=== PATIENT | male | born 1990 | race Caucasian/White ===

== ENCOUNTER 2017-06-16 18:46 | Inpatient (IN) | payer OTHER ==
[~2017-06-16] VITALS: Ht 172.7 cm; Wt 81.6 kg
[2017-06-16 18:57] VITALS: BP 124/88
[2017-06-16 19:10] LABS: ABSOLUTE BASOPHILS 0.1 thou/uL (0.0-0.2); ABSOLUTE EOSINOPHILS 0.1 thou/uL (0.0-0.7); ABSOLUTE LYMPHOCYTES 5.3 thou/uL (0.8-5.3); ABSOLUTE MONOCYTES 1.1 thou/uL (0.0-1.2); ABSOLUTE NEUTROPHILS 5.5 thou/uL (1.6-8.1); BASOPHILS 0.5 %; EOSINOPHILS 1.1 %; HEMATOCRIT 44.3 % (42.0-52.0); HEMOGLOBIN 15.3 gm/dL (14.0-18.0); LYMPHOCYTES 43.9 %; MCH 29.4 pg (26.0-34.0); MCHC 34.6 g/dL (28.0-37.0); MONOCYTES 8.9 %; MPV 7.1 fl. (7.2-11.1); NUCLEATED RBCS 0 /100WBC; PLATELET COUNT* 342 thou/uL (150-400); POLYS 45.6 %; RBC 5.21 mil/uL (4.50-6.00); RDW-CV 12.9 % (10.5-14.5)
[2017-06-16 19:15] LABS: ANION GAP 12 mmol/L (7-16); BUN 11 mg/dL (7-18); CALCIUM 8.8 mg/dL (8.5-10.1); CHLORIDE 103 mmol/L (98-107); CO2 25 mmol/L (21-32); CREATININE 1.3 mg/dL (0.6-1.3); GLUCOSE 79 mg/dL (70-99); SODIUM 140 mmol/L (136-145)
[2017-06-16] MEDS ORDERED: HYDROCODONE-AP1 EAC6 PO (19:15)
[2017-06-16 19:20] LABS: APTT 28.2 Seconds (25.0-31.3); INR 1.1; PROTIME 10.7 Seconds (9.20-11.50)
[2017-06-16 19:26] LABS: ALBUMIN 4.2 g/dL (3.4-5.0); ALKALINE PHOSPHATASE 69 U/L (46-116); NT-PRO BRAIN NAT PEPTIDE 50 pg/mL (<300); SGOT 25 U/L (15-37); SGPT 26 U/L (30-65); TOTAL BILIRUBIN 0.2 mg/dL (<0.1-1.0); TOTAL PROTEIN 7.3 g/dL (6.4-8.2); TROPONIN-I LEVEL <0.06 ng/mL (<0.06)
[2017-06-16 19:53] LABS: INFLUENZA A ANTIGEN None Detected (None Detect); INFLUENZA B ANTIGEN None Detected (None Detect)
[2017-06-16 20:01] LABS: URINE BILIRUBIN NEGATIVE (Negative); URINE BLOOD NEGATIVE (Negative); URINE CLARITY CLEAR; URINE COLOR YELLOW; URINE GLUCOSE-RANDOM NEGATIVE (Negative); URINE KETONES NEGATIVE (Negative); URINE LEUKOCYTES-REFLEX NEGATIVE (Negative); URINE NITRITE-REFLEX NEGATIVE (Negative); URINE PROTEIN NEGATIVE (Negative); URINE UROBILINOGEN 0.2 E.U./dl (0.2-1.0)
[2017-06-16 20:10] LABS: AMP/METHAMP Negative (Negative); BARBITURATES Negative (Negative); BENZODIAZEPINES Negative (Negative); COCAINE Negative (Negative); METHADONE Negative (Negative); OPIATES POSITIVE (Negative); PCP Negative (Negative); THC Negative (Negative)
--- NOTE | 2017-06-16 20:38 | NUR ---
DR. GONSALES ATTEMPTED LUMBAR PUNCTURE. PT REQUESTED THE PROCEDURE BE STOPPED. DR. GONSALES STOPPED PROCEDURE WITHOUT GETTING SPECIMEN.
[2017-06-16 22:31] VITALS: BP 123/74
[2017-06-16 23:39] VITALS: BP 119/64
--- NOTE | 2017-06-17 01:06 | NUR ---
PATIENT ARRIVED BY CART FROM ER TO ROOM 102 IN STABLE CONDITION AT 2220. ALERT AND ORIENTED X4. FENTANYL GIVEN FOR LEFT LEG PAIN, C/O LLE NUMBNESS AND PAIN AND LUE TINGLING SINCE LP ATTEMPT IN ER. IVF INFUSING ORDERED. DENIES NAUSEA. VOIDING ADEQUATELY PER URINAL. VITALS STABLE. CONTINUE TO MONITOR.
[2017-06-17 08:00] VITALS: BP 138/67
[2017-06-17 08:05] VITALS: BP 138/67
[2017-06-17 11:20] LABS: HEMATOCRIT 43.4 % (42.0-52.0); HEMOGLOBIN 14.9 gm/dL (14.0-18.0); MCH 29.2 pg (26.0-34.0); MCHC 34.3 g/dL (28.0-37.0); MPV 7.4 fl. (7.2-11.1); RBC 5.1 mil/uL (4.50-6.00); RDW-CV 13.2 % (10.5-14.5); WBC 13.6 thou/uL (4.0-11.0)
[2017-06-17 11:45] LABS: ALBUMIN 3.8 g/dL (3.4-5.0); CALCIUM 8.8 mg/dL (8.5-10.1); MAGNESIUM 1.9 mg/dL (1.8-2.4); POTASSIUM 3.9 mmol/L (3.5-5.1); TOTAL BILIRUBIN 0.3 mg/dL (<0.1-1.0); TOTAL PROTEIN 6.9 g/dL (6.4-8.2)
--- NOTE | 2017-06-17 12:28 | EKG ---
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
[2017-06-17 15:24] LABS: AMP/METHAMP Negative (Negative); BARBITURATES Negative (Negative); BENZODIAZEPINES Negative (Negative); COCAINE Negative (Negative); METHADONE Negative (Negative); OPIATES Negative (Negative); PCP Negative (Negative); THC Negative (Negative)
--- NOTE | 2017-06-17 15:46 | NUR ---
PT.OFF UNIT FOR LUMBAR PUNCTURE. WILL SEE AT A LATER DATE.
[2017-06-17 16:24] LABS: CSF GLUCOSE 71 mg/dl (40-70); CSF PROTEIN 34.1 mg/dl (15-45)
[2017-06-17 16:54] LABS: CSF CLARITY TURBID; CSF COLOR PINK; CSF WBC 6 /mm3 (0-10); VOLUME 11 ml
[2017-06-17 16:55] LABS: CSF RBC 2675 /mm3
--- NOTE | 2017-06-17 17:08 | NUR ---
PATIENT REMAINED ALERT AND ORIENTED X'S 4. VITAL SIGNS AND SPO2 STABLE. IV CLEAN, FLUIDS INFUSING. PATIENT RECIEVED SPINAL TAP AND GOT BACK TO UNIT AROUND 1615. PATIENT HAVING HORRIBLE HEADACHE AND SENSITIVITY TO LIGHT. GAVE DILUDID, PATIENT FELL ASLEEP. TOLERATED DIET, NO NAUSEA AND VOMITING. VOIDED WITHOUT ISSUE. COMPLETED HOURLY ROUNDING. CALL LIGHT WITHIN REACH. WILL CONTINUE TO MONITOR.
[2017-06-17 21:00] VITALS: BP 121/68
[2017-06-18 00:21] VITALS: BP 126/59
--- NOTE | 2017-06-18 05:34 | NUR ---
PATIENT ALERT AND ORIENTED. VITALS STABLE. AFEBRILE. RA. LUMBAR PUNCTURE SITE C/D/I. COMPLAINTS OF HEADACHE AND BACK PAIN. PATIENT IN TEARS DUE TO HEADACHE DURING THE NIGHT. PHYSICIAN NOTIFIED ORDERS RECEIVED. TAKING DILAUDID APPROXIMATELY EVERY THREE HOURS. DID NOT SLEEP MUCH. VOIDING PER URINAL, ADEQUATELY. FLUIDS INFUSING PER ORDER. STATES THAT LEFT LEG NUMBNESS IS IMPROVING. HOURLY ROUNDS. INSTRUCTED TO CALL FOR ASSISTANCE. NURSING WILL CONTINUE TO MONITOR.
[2017-06-18 08:11] VITALS: BP 135/79
--- NOTE | 2017-06-18 14:47 | NUR ---
RE: PHARMACY VANCOMYCIN DOSING. SCR = 1.0, CRCL = 109.3, TMAX = 36.4, WBC = 13.6. PT RECEIVING VANCOMYCIN 1.25 GM IV Q12H. PT HAD VANCOMYCIN TROUGH OF 6 WHICH WAS DRAWN APPROPRIATELY. WILL INCREASE DOSE TO 1 GM IV Q8H. REPEAT VANCOMYCIN TROUGH TO BE DRAWN PRIOR TO 06/20/17 10:00 DOSE. WILL FOLLOW. THANK YOU.
[2017-06-18 16:18] VITALS: BP 121/59
[2017-06-18 17:24] VITALS: BP 121/59
--- NOTE | 2017-06-18 18:28 | NUR ---
ASSUMED CARE OF PATIENT AFTER MORNING REPORT. ALERT AND ORIENTED X4. ASSESSMENT COMPLETED AND CHARTED. VSS ON ROOM AIR. PATIENT HAS HAD NO COMPLAINTS OF NAUSEA THIS SHIFT. PAIN HAS BEENMANAGED WITH PAIN MEDICATION. PATIENT RESTED COMFORTABLY IN BED THROUGHOUT THE SHIFT. PATIENT DISCHARGE HAS BEEN PROCESSED AND SIGNED. PATIENT IN ROOM CURRENTLY WAITING ON HIS RIDE HOME.
--- NOTE | 2017-06-20 07:39 | CON ---
[address] [address] CONSULTATION Name: VILMA OBANDO Room: [address] IN .R.#: [id number] Admission: 06/16/17 Attend Phys: Kylah Mercado Discharge: 06/18/17 Date of : 89 Report #: [id number] THIS REPORT FOR: //name// CC: QUINN physician/PCP Vish Gutierrez DATE OF SERVICE: 06/17/2017 ATTENDING PHYSICIAN: Vish Gutierrez DO. REASON FOR EVALUATION: Encephalopathy, headache, possible meningitis. HISTORY OF PRESENT ILLNESS: Chart reviewed, patient examined. This is a 26-year-old whose recent medical history includes hemorrhoid surgery on 06/15/2017. He had a significant amount of postoperative pain he states over the course of the next 24-36 hours and developed fevers, associated headache and some near syncope with altered mental status. He was evaluated in the Emergency Room. Four attempts at lumbar puncture were unsuccessful. He was empirically started on vancomycin as well as ceftriaxone. Overall, he is better today. Still having some mild headaches, photophobia, the meningismus or neck stiffness seemed to have improved. He is afebrile. On questioning, he denies any particular exposure history. 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 ALLERGIES: IODINE AND ASPIRIN. CURRENT MEDICATIONS: Include ceftriaxone, vancomycin, analgesics. PAST MEDICAL HISTORY: Noted for the hemorrhoids. SOCIAL HISTORY: Nonsmoker, no ethanol. FAMILY HISTORY: Noncontributory. REVIEW OF SYSTEMS: As above. Denies any pulmonary or gastrointestinal related complaints. PHYSICAL EXAMINATION: GENERAL: He is alert, cooperative, mild to moderate distress. VITAL SIGNS: Temperature 97.6, pulse 84, respirations 18, blood pressure 130/67. SKIN: Warm, dry, no rashes. HEENT: Otherwise, unremarkable. NECK: Supple. LUNGS: Clear to auscultation. HEART: Regular. [place] [address] CONSULTATION Name: VILMA OBANDO Room: [address]#: [id number] Admission: 06/16/17 Attend Phys: Kylah Mercado Discharge: 06/18/17 Date of : 89 Report #: [id number] ABDOMEN: Soft. EXTREMITIES: No cyanosis. GENITOURINARY AND RECTAL: Deferred. LABORATORY DATA: CBC: White count of 13.6, H and H of 14.9 and 43.4, platelets of 362. Blood cultures sterile thus far. Monospot is negative. Lactic acid 0.9. Urinalysis unremarkable. Influenza negative. CT of the head showed no acute abnormalities and rapid strep was negative. Lactic acid 2.2. Liver functions unremarkable. Albumin 4.2, total protein 7.3, estimated GFR of 67. ASSESSMENT AND PLAN: Encephalopathy with associated fever, recent hemorrhoid surgery certainly raises question of possible transient bacteremia with seeding. I am not inclined to believe he has got bacterial meningitis. I do not think there is any where he will agree to any additional efforts at lumbar puncture. We will continue empiric therapy over the course of next 24-48 hours and see how he does clinically and evaluate for possible other focus of infection. Thank you. We will follow. <ELECTRONICALLY SIGNED> By: Chauncey Greene MD 06/20/17 0739 1135 [id number] Greene MD /nt
--- NOTE | 2017-07-08 09:25 | D ---
[address] [address] DISCHARGE SUMMARY Name: GISELLA,VILMA LERNER Room: [address] IN .#: [id number] Admission: 06/16/17 Attend Phys: Kylah Mercado Discharge: 06/18/17 Date of : 89 Report #: [id number] THIS REPORT FOR: //name// CC: [facility]N physician/PCP Vish Gutierrez DATE OF SERVICE: 06/18/2017 DATE OF DISCHARGE: 06/18/2017 AMA REASON FOR HOSPITAL STAY: This 26-year-old male was admitted with symptoms of acute encephalopathy with lethargy, sore throat and fever as well as headache. He was seen in the Emergency Room and thought to have evidence of encephalitis. He had been taking narcotics after he had hemorrhoidal surgery in [place], [place]. A few days earlier, he presented with headache and LP was attempted in the ER without success. He was admitted to the floor and IR was consulted for lumbar puncture. The lumbar puncture revealed no evidence of significant meningitis. His headache improved and he did experience radicular symptoms after the lumbar puncture, which resolved on the day of discharge. He was seen in consultation by Surgery and felt to have no significant postop rectal bleeding although reported significant bleeding on the day of admission. His vital signs remained stable. Hemoglobin was stable as well. LABORATORY DATA: His potassium was 3.9. INR 1.1. White count 13.6 and hemoglobin 14.9. Kerr screen was negative. Influenza screen was negative. Urine opiate drug screen was positive. PHYSICAL EXAMINATION: GENERAL: On exam, he is alert, oriented and appropriate affect. LUNGS: Clear. ABDOMEN: Soft. SKIN: Warm and dry, good capillary refill NEUROLOGIC: Speech was normal. Neurologically, cranial nerves 2-12 were grossly intact. He was ambulatory without gait disturbance. VITAL SIGNS: Afebrile and pulse ox showed an O2 sat of 98%, respiratory rate was 16 and unlabored and weight 180 pounds. HOSPITAL COURSE: The patient was ordered to have consultation with Infectious Disease. The patient unfortunately left against medical advice prior to this consultation. No further instructions were given as the patient did leave [place]. He is to follow up with his surgeon in [place] next week and with his primary care doctor in 2-3 days. CSF cultures as far [place] I [place] [address] DISCHARGE SUMMARY Name: VILMA OBANDO Room: [address] IN [facility]#: [id number] Admission: 06/16/17 Attend Phys: Kylah Mercado Discharge: 06/18/17 Date of : 89 Report #: [id number] at the time of his dismissal; however, he did leave [place]. Rapid strep was negative. Lactic acid was elevated on the day of admission at 2.2. <ELECTRONICALLY SIGNED> By: Tavo Sullivan MD 07/08/17 0925 [id number] Celestino Sullivan MD /nt
== END 2017-06-18 20:00 | disposition left against medical advice (07) | DRG 71 ==
LOC: M.ERS 18:46 → M.TBA-ER 21:00 → M.ORTHSURG 21:00
PROVIDERS: Family Medicine; Physician Assistant; ADMIT Internal Medicine
PROC: 009U3ZX Drainage of Spinal Canal, Percutaneous Approach, Diagnostic (ICD-10-PCS; principal; 2017-06-16)
PROC: B01B1ZZ Fluoroscopy of Spinal Cord using Low Osmolar Contrast (ICD-10-PCS; principal; 2017-06-16)
DX: G93.40 Encephalopathy, unspecified (principal); E87.2 Acidosis; K62.5 Hemorrhage of anus and rectum; R65.10 Systemic inflammatory response syndrome (SIRS) of non-infectious origin without acute organ dysfunction; Z88.6 Allergy status to analgesic agent; Z91.041 Radiographic dye allergy status